=== PATIENT | male | born 1965 | race Caucasian/White ===

== ENCOUNTER 2025-05-12 12:54 | Emergency (ER) | payer MEDICAID ==
[~2025-05-12] VITALS: Ht 170.2 cm; Wt 73.9 kg
[2025-05-12] MEDS ORDERED: METH40TA PO (13:59)
[2025-05-12] MEDS ORDERED: METHADONE HCL 10 MG TABLET ONE ×2 (14:01→14:05)
[2025-05-12] MEDS: METHADONE HCL 10 MG TABLET PO SCH (14:08)
[2025-05-12 15:06] VITALS: BP 127/72; TEMP 97.9; O2SAT 99
== END 2025-05-12 15:06 | disposition home or self-care (01) ==
LOC: ER 13:23
DX: F11.23 Opioid dependence with withdrawal (principal); G89.29 Other chronic pain